=== PATIENT | female | born 1985 | race Caucasian/White ===

== ENCOUNTER → 2016-11-16 | Outpatient (CLI) | payer OTHER ==
[~2016-11-16] MED LIST: ACET325T96 PO; IBUP-103 PO; ONDA4TAB7 SL
== END | disposition home or self-care (01) ==
LOC: C.LAB 11:56
PROVIDERS: ATTEND Family Medicine
DX: J40 Bronchitis, not specified as acute or chronic (principal)

== ENCOUNTER → 2017-04-16 | Outpatient (CLI) | payer OTHER | END | disposition home or self-care (01) | LOC: C.PAPS 10:21 | PROVIDERS: ATTEND Obstetrics & Gynecology | DX: Z12.4 Encounter for screening for malignant neoplasm of cervix (principal) ==

== ENCOUNTER → 2018-02-18 | Outpatient (CLI) | payer OTHER ==
[~2018-02-18] MED LIST changes: +ACET-1693 PO; -ACET325T96 PO
== END | disposition home or self-care (01) ==
LOC: C.PATHSPEC 11:52
PROVIDERS: ATTEND Plastic Surgery
DX: D22.62 Melanocytic nevi of left upper limb, including shoulder (principal); D23.62 Other benign neoplasm of skin of left upper limb, including shoulder

== ENCOUNTER 2020-09-09 06:18 | Inpatient (IN) ==
[2020-09-09] MEDS ORDERED: MoRPHine SULFATE 10 MG/ML CARP/VIAL IV STA (06:20)
--- OUTSIDE RECORDS SUMMARY | 2020-09-09 06:20 | External Medical Summary | Continuity of Care Document ---
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 Refills: 0 Procedures Procedures not documented Immunizations Immunizations not documented Family History Father Family history of malignant neoplasm of urinary bladder (V16 .52) Status: Active (Z80.52) Family history of diabetes mellitus (V18.0) (Z83.3) Status: Active Grandmother Family history of malignant neoplasm of colon (V16.0) (Z80.0 ) Status: Active Grandfather Family history of cardiac disorder (V17.49) (Z82.49) Status: Active Social History - Smoking Status Never smoked tobacco Plan of Treatment Planned Observations Planned Goals not documented Results No Known Results Results not documented
--- OUTSIDE RECORDS SUMMARY | 2020-09-09 06:21 | External Medical Summary | Continuity of Care Document ---
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
[2020-09-09] MEDS ORDERED: ONDANSETRON INJ 2 MG/ML 2 ML VIAL IV STA ×2 (06:22→08:29)
[2020-09-09] MEDS ORDERED: HYDROmorphone INJ 1 MG/ML SYRINGE IV STA ×2 (06:36→10:21)
[2020-09-09] MEDS ORDERED: HYDROmorphone INJ 1 MG/ML SYRINGE ONE (06:37)
--- NOTE | 2020-09-09 06:47 | Emergency Department Note ---
ED Visit Note I have personally seen and evaluated the patient with the PA. I agree with the diagnosis and management decisions and have been personally involved in the case. X-rays were reviewed at the bedside, it appears that the patient has a comminuted and spiral midshaft to distal tib-fib fracture. Patient is neurovascularly intact distally. There does not appear to be any open skin. A sugar tong and posterior Ortho-Glass splint was applied under my direction. Patient did receive IV morphine and Zofran for her pain. IV fluids were initiated. The patient did have clear fluids this morning but states she did not eat any solid foods. Orthopedic surgery has been contacted. Please see Kristy Sarmiento PA-C's notes for further details of the history, physical and visit. .
--- NOTE | 2020-09-09 06:48 | Emergency Department Note ---
History of Present Illness General Chief complaint: Ankle Pain Stated complaint: FALL-R ANKLE Source: patient Mode of arrival: ambulatory Limitations: no limitations History of Present Illness Maximum Pain Intensity: 10 This patient is a 34-year-old female who presents to the emergency department for evaluation of a right leg injury. 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 She states that her foot went under her when she fell. She reports severe pain in the right lower leg. Pain rated 10/10. No numbness or weakness. Patient denies any other injuries with the fall. Denies previous injuries to this ankle/leg. Home Medications Medication Instructions Recorded Confirmed Type No Known Home Medications 09/09/20 09/09/20 History acetaminophen 1,000 mg PO Q8 30 Days #180 tab 09/09/20 Rx aspirin 81 mg PO BID 30 Days #60 tab 09/09/20 Rx ondansetron HCl [Zofran] 4 mg PO TID PRN #30 tab 09/09/20 Rx tramadol 50 - 100 mg PO Q6H PRN #40 tab 09/09/20 Rx Allergies Allergy/AdvReac Type Severity Reaction Status Date / Time No Known Allergies Allergy Mild Verified 09/09/20 06:28 Past Med/Surg History Medical History No significant past medical history Social History Smoking Status: Never smoker Hx Alcohol Use: Yes Alcohol type: beer and wine Hx Substance Use: No Preferred Language: Bolivian Communication Ability: Effective Imaging Technologist Required: No Beliefs That Will Affect Care: None marital status: Current Living Situation: Spouse and Family current occupational status: employed Feels Safe at Home: Yes Assistive Devices: Crutches and Glasses Review of Systems A total of 10 systems reviewed and were otherwise negative Physical Exam Vital Signs Vital Signs - 24 hr 09/09/20 06:43 Temperature 37.8 C H Temperature Source Oral Pulse Rate 106 H Pulse Rhythm Regular Respiratory Rate 20 Respiratory Effort / Characteristics Non-Labored Spontaneous Respiratory Depth Normal Respiratory Pattern Regular Blood Pressure 124/78 Blood Pressure Mean 93 Blood Pressure Position Sitting Pulse Oximetry 99 Oxygen Delivery Method Room Air Sepsis Recent Fever Within 48 Hours No Sepsis New/Unexplained Change in Mental Status No Sepsis Action Taken by Nursing No Action Required VITALS: Vitals are noted on the nurse's note and reviewed by myself. GENERAL: This is a 34-year-old female, anxious appearing, appears to be in pain, well-developed well-nourished. SKIN: There are no lacerations. Ecchymosis to the medial right lower leg. EARS: External auditory canals clear, tympanic membranes pearly dennis without erythema or effusion bilaterally. EYES: Pupils equal round and reactive to light and accommodation. MOUTH: Mucous membranes moist. Tonsils are not enlarged. Pharynx without erythema or exudate. NECK: Supple without nuchal rigidity. Cervical spine is nontender. HEART: Regular rate and rhythm without murmurs gallops or rubs. LUNGS: Clear to auscultation bilaterally without wheezes, rales or rhonchi. ABDOMEN: Positive bowel sounds x 4. Soft, nontender. MUSCULOSKELETAL: Obvious deformity to the right lower leg with tenderness over the area of deformity. No tenderness of the knee or femur. No tenderness of the foot. Dorsalis pedis pulse 2+. NEURO: Patient was alert and oriented to person place and time. Sensation intact distally over the right lower extremity. Course Course Splint placement: Splint: Ortho-Glass posterior and stirrup Indication: Right tibia and fibula fractures Ortho-Glass splint was applied by the ED automobile technician, myself and Dr. Rea. Neurovascular status reassessed by myself status post splint placement and was intact. Consultations Consultation #1: [facility] Consultation #2: I was informed that due to the patient's workman's compensation insurance, she was not able to see [facility], only [facility] or [facility]. The on-call orthopedist for both groups, Dr. Agee was called. Dr. Agee reviewed the patient studies and states he will send someone up to see her. Consultation #3: I was informed by Dr. Agee that he was not able to add the patient onto the OR schedule as she was already on Dr. Odell schedule. Apparently, the patient personally called Dr. Odell and reports that he is coming to see her. Administered Medications Discontinued Medications Acetaminophen (Acetaminophen 500 Mg Tab) 1,000 mg PO Q8 DENAE Stop: 10/09/20 21:59 Last Admin: 09/10/20 04:59 Dose: 1,000 mg Documented by: [id number] Admin: 09/09/20 22:06 Dose: 1,000 mg Documented by: [id number] Aspirin (Aspirin 81 Mg Ectab) 81 mg PO BID [facility] Stop: 10/09/20 20:59 Last Admin: 09/10/20 08:47 Dose: 81 mg Documented by: [id number] Admin: 09/09/20 20:16 Dose: 81 mg Documented by: [id number] Bacitracin (Bacitracin Inj 50,000 Unit Vial) Confirm Administered Dose 50,000 units .ROUTE .STK-MED ONE Stop: 09/09/20 11:07 Last Admin: 09/09/20 13:45 Dose: 50,000 units Documented by: [id number] Bupivacaine HCl (Bupivacaine 0.25% 30 Ml Vial) Confirm Administered Dose 30 ml .ROUTE .STK-MED ONE Stop: 09/09/20 11:18 Last Admin: 09/09/20 13:46 Dose: 30 ml Documented by: [id number] Bupivacaine HCl/Epinephrine Bitart (Bupivacaine/Epinephrine 0.5% Mpf 1:200,000 30 Ml Vial) Confirm Administered Dose 30 ml .ROUTE .STK-MED ONE Stop: 09/09/20 11:06 Last Admin: 09/09/20 13:45 Dose: Not Given Documented by: [id number] Docusate Sodium (Docusate Sodium 100 Mg Cap) 100 mg PO BID [facility] Stop: 10/09/20 20:59 Last Admin: 09/10/20 08:48 Dose: 100 mg Documented by: [id number] Admin: 09/09/20 20:16 Dose: 100 mg Documented by: [id number] Epinephrine HCl (Epinephrine Inj 1 Mg/Ml Amp) Confirm Administered Dose 1 mg .ROUTE .STK-MED ONE Stop: 09/09/20 11:18 Last Admin: 09/09/20 13:46 Dose: 0.15 mg Documented by: [id number] Hydromorphone HCl (Hydromorphone Inj 1 Mg/Ml Syringe) 1 mg IV NOW [facility] Stop: 09/09/20 06:37 Last Admin: 09/09/20 06:39 Dose: 0.5 mg Documented by: [id number] Hydromorphone HCl (Hydromorphone Inj 1 Mg/Ml Syringe) Confirm Administered Dose 1 mg .ROUTE .STK-MED ONE Stop: 09/09/20 06:38 Last Admin: 09/09/20 06:39 Dose: Not Given Documented by: [id number] Hydromorphone HCl (Hydromorphone Inj 0.5 Mg/0.5 Ml Syr) 0.5 mg IV NOW STA Stop: 09/09/20 08:30 Last Admin: 09/09/20 08:39 Dose: 0.5 mg Documented by: [id number] Hydromorphone HCl (Hydromorphone Inj 1 Mg/Ml Syringe) 1 mg IV NOW STA Stop: 09/09/20 10:22 Last Admin: 09/09/20 10:24 Dose: 1 mg Documented by: [id number] Cefazolin Sodium (Ancef 2000mg) 2,000 mg in 15 mls @ 3.75 mls/min IV PREOP DENAE Stop: 09/09/20 14:00 Last Admin: 09/09/20 11:45 Dose: 3.75 mls/min Documented by: [id number] Sodium Chloride (Nss 1000ml) 1,000 mls @ 100 mls/hr IV .Q10H DENAE Stop: 09/10/20 06:00 Last Infusion: 09/10/20 03:33 Dose: 0 mls/hr Documented by: [id number] Admin: 09/09/20 22:04 Dose: 100 mls/hr Documented by: [id number] Infusion: 09/09/20 22:04 Dose: 100 mls/hr Documented by: [id number] Admin: 09/09/20 16:10 Dose: 100 mls/hr Documented by: [id number] Cefazolin Sodium (Ancef 2000mg) 2,000 mg in 15 mls @ 3.75 mls/min IV Q8H DENAE; Protocol Stop: 09/10/20 04:03 Last Admin: 09/10/20 03:28 Dose: 3.75 mls/min Documented by: [id number] Admin: 09/09/20 20:16 Dose: 3.75 mls/min Documented by: [id number] Ketorolac Tromethamine (Ketorolac 30 Mg/Ml Vial) 30 mg IV Q6H DENAE Stop: 09/11/20 11:01 Last Admin: 09/10/20 10:48 Dose: 30 mg Documented by: [id number] Admin: 09/10/20 04:59 Dose: 30 mg Documented by: [id number] Admin: 09/09/20 22:06 Dose: 30 mg Documented by: [id number] Admin: 09/09/20 16:39 Dose: 30 mg Documented by: [id number] Miscellaneous (Check Scopolamine Patch Placement) 1 ea N/A QS [facility] Stop: 10/10/20 00:00 Last Admin: 09/10/20 08:48 Dose: 1 ea Documented by: [id number] Admin: 09/09/20 23:34 Dose: Not Given Documented by: [id number] Morphine Sulfate (Morphine Sulfate 10 Mg/Ml Carp/Vial) 6 mg IV NOW STA Stop: 09/09/20 06:21 Last Admin: 09/09/20 06:27 Dose: 6 mg Documented by: [id number] Multivitamins (Multivitamin Tab) 1 tab PO QAM [facility] Stop: 10/10/20 08:59 Last Admin: 09/10/20 08:48 Dose: 1 tab Documented by: [id number] Ondansetron HCl (Ondansetron Inj 2 Mg/Ml 2 Ml Vial) 4 mg IV NOW STA Stop: 09/09/20 06:23 Last Admin: 09/09/20 06:27 Dose: 4 mg Documented by: [id number] Ondansetron HCl (Ondansetron Inj 2 Mg/Ml 2 Ml Vial) 4 mg IV NOW STA Stop: 09/09/20 08:30 Last Admin: 09/09/20 08:39 Dose: 4 mg Documented by: [id number] Scopolamine (Scopolamine 1.5 Mg Tdsy) Confirm Administered Dose 1.5 mg TD .STK- MED [facility] Stop: 09/09/20 11:25 Last Admin: 09/09/20 17:02 Dose: Not Given Documented by: [id number] Sennosides (Senna 8.6 Mg Tab) 17.2 mg PO HS [facility] Stop: 10/09/20 20:59 Last Admin: 09/09/20 20:16 Dose: 17.2 mg Documented by: [id number] Tramadol HCl (Tramadol Hcl 50 Mg Tablet) 50 - 100 mg PO Q6H PRN PRN Reason: Pain & Pre PT Stop: 10/09/20 16:05 Last Admin: 09/10/20 09:29 Dose: 100 mg Documented by: [id number] Admin: 09/10/20 03:39 Dose: 50 mg Documented by: [id number] Admin: 09/09/20 19:58 Dose: 50 mg Documented by: [id number] Medical Decision Making Differential Diagnosis Fracture, subluxation, dislocation, contusion, ligamentous injury, neurovascular, compartment syndrome, rhabdomyolysis, as well as other pathologies. Home Medications Current Medication List: was personally reviewed by me Laboratory Data Lab Results 09/09/20 Range/Units Unknown SARS-CoV-2 Ag (Rapid) Negative (Negative) Imaging Data Attestation: I personally reviewed and interpreted this imaging study as follows: Radiologist's Impression: XR tibia fibula RT 2V, XR ankle RT min 3V routine HISTORY: 34 years-old Female right ankle injury acute right ankle and lower leg pain status post fall COMPARISON: None TECHNIQUE: 2 views of the right tibia and fibula with 3 views of the right ankle FINDINGS: TIBIA/FIBULA: There is an acute comminuted fracture involving the distal metadiaphyseal tibia with intra-articular extension into the lateral aspect of the tibial plafond and distal tibiofibular syndesmosis. There is 8 mm medial displacement with 7 degrees apex medial angulation a 6 mm posterior displacement. There is an acute comminuted fracture of the midshaft fibular which demonstrates 7 mm medial displacement and 6 mm posterior displacement with a few degrees of apex molar angulation. Moderate associated soft tissue swelling. ANKLE: Acute fractures as above. No definite pathologic widening of the distal tibiofibular syndesmosis. Talar dome is smooth. Ankle mortise is intact. IMPRESSION: 1. Acute comminuted fracture of the distal metadiaphyseal tibia with intra- articular extension into the lateral tibial plafond and distal tibiofibular syndesmosis with angulation and displacement as above. 2. Acute, comminuted, mildly angulated and displaced fracture of the mid diaphyseal fibula. RIGHT TIBIA/FIBULA CT CT DOSE: 362.78 mGy.cm HISTORY: Right lower leg and ankle pain. tib/fib fx - please include ankle TECHNIQUE: Multiaxial CT images of the right lower leg were performed and reformatted in the sagittal and coronal plane without the use of contrast. A dose lowering technique was utilized adhering to the principles of ALARA. COMPARISON: Right ankle and right lower leg 09/09/2020. FINDINGS: There is again noted a comminuted and displaced mid shaft fracture within the fibula. This demonstrates 9 mm of medial displacement and 1.9 cm of anterior displacement. The distal fibula appears intact. There is also a comminuted spiral fracture involving the distal metadiaphysis of the tibia. This extends to the articular surface which includes both the medial and posterior malleoli. The articular surface fractures are not significantly displaced. There is a tiny fracture along the anterolateral aspect of the distal tibia with a small distracted bony fragment. No dislocation at the ankle. The distal shaft fracture demonstrates up to 8 mm of medial and posterior displacement. No significant widening at the ankle mortise. Small lipohemarthrosis at the tibiotalar joint. Soft tissue edema surrounding the fracture sites. There is also a subcutaneous hematoma within the anterior distal lower leg. IMPRESSION: 1. Comminuted and displaced fractures involving the mid shaft of the fibula and distal tibia as described above. The tibial fracture extends to the articular surface. However, no significant widening of the ankle mortise. 2. Lipohemarthrosis at the tibiotalar joint. 3. Subcutaneous hematoma within the anterior distal lower leg. MDM Narrative This patient is a 34-year-old female who presents to the emergency department for evaluation of a right lower extremity injury. Patient with obvious deformity on exam. X-ray shows a comminuted fracture of the distal tibia as well as comminuted fracture of the mid fibula. Patient neurovascularly intact. Ortho-Glass splint was applied. Patient given IV pain medication. CT of the lower extremity was performed. Orthopedics was consulted to evaluate the patient for further care. Impression & Plan Comminuted fracture of shaft of tibia, Comminuted fracture of shaft of fibula Discharge Plan Visit Data Chief Complaint: Ankle Pain Stated Complaint: FALL-R ANKLE ED Provider: Sylvia Rea ED Midlevel Provider: Kristy Sarmiento Discharge Problem: Comminuted fracture of shaft of tibia, Comminuted fracture of shaft of fibula Patient Disposition: Still a Patient Discharge Instructions Interventions: ED Discharge Assessment Last Done: 09/09/20 10:56 Discharge Problem: Comminuted fracture of shaft of tibia Qualifiers: Encounter type: initial encounter Fracture type: closed Fracture alignment: displaced Laterality: right Qualified Code(s): S82.251A - Displaced comminuted fracture of shaft of right tibia, initial encounter for closed fracture Comminuted fracture of shaft of fibula Qualifiers: Encounter type: initial encounter Fracture type: closed Fracture alignment: displaced Laterality: right Qualified Code(s): S82.451A - Displaced comminuted fracture of shaft of right fibula, initial encounter for closed fracture
--- NOTE | 2020-09-09 06:58 | XRay Report ---
XR tibia fibula RT 2V, XR ankle RT min 3V routine HISTORY: 34 years-old Female right ankle injury acute right ankle and lower leg pain status post fal l COMPARISON: None TECHNIQUE: 2 views of the right tibia and fibula with 3 views of the right ankle FINDINGS: TIBIA/FIBULA: There is an acute comminuted fracture involving the distal metadiaphyseal tibia with intra-articular extension into the lateral aspect of the tibial plafond and distal tibiofibular syndesmosis. There is 8 mm medial displacement with 7 degrees apex medial angulation a 6 mm posterior displacement. There is an acute comminuted fracture of the midshaft fibular which demonstrates 7 mm medial displace ment and 6 mm posterior displacement with a few degrees of apex molar angulation. Moderate associated soft tissue swelling. ANKLE: Acute fractures as above. No definite pathologic widening of the distal tibiofibular syndesmosis. Derek ar dome is smooth. Ankle mortise is intact. IMPRESSION: 1. Acute comminuted fracture of the distal metadiaphyseal tibia with intra-articular extension into t he lateral tibial plafond and distal tibiofibular syndesmosis with angulation and displacement as abo ve. 2. Acute, comminuted, mildly angulated and displaced fracture of the mid diaphyseal fibula. ACT 112: Negative or not required by law. The above report was generated using voice recognition software. It may contain grammatical, syntax o r spelling errors. Electronically signed by: Ivan Kiser M.D. 09/09/2020 6:57 AM
--- NOTE | 2020-09-09 07:54 | CT Scan Report ---
RIGHT TIBIA/FIBULA CT CT DOSE: 362.78 mGy.cm HISTORY: Right lower leg and ankle pain. tib/fib fx - please include ankle TECHNIQUE: Multiaxial CT images of the right lower leg were performed and reformatted in the sagittal and coronal plane without the use of contrast. A dose lowering technique was utilized adhering to t he principles of ALARA. COMPARISON: Right ankle and right lower leg 09/09/2020. FINDINGS: There is again noted a comminuted and displaced mid shaft fracture within the fibula. This demonstrates 9 mm of medial displacement and 1.9 cm of anterior displacement. The distal fibula appea rs intact. There is also a comminuted spiral fracture involving the distal metadiaphysis of the tibia . This extends to the articular surface which includes both the medial and posterior malleoli. The ar ticular surface fractures are not significantly displaced. There is a tiny fracture along the anterol ateral aspect of the distal tibia with a small distracted bony fragment. No dislocation at the ankle. The distal shaft fracture demonstrates up to 8 mm of medial and posterior displacement. No significa nt widening at the ankle mortise. Small lipohemarthrosis at the tibiotalar joint. Soft tissue edema s urrounding the fracture sites. There is also a subcutaneous hematoma within the anterior distal lower leg. IMPRESSION: 1. Comminuted and displaced fractures involving the mid shaft of the fibula and distal tibia as descr ibed above. The tibial fracture extends to the articular surface. However, no significant widening of the ankle mortise. 2. Lipohemarthrosis at the tibiotalar joint. 3. Subcutaneous hematoma within the anterior distal lower leg. ACT 112: Negative or not required by law. Electronically signed by: Ivan Pedraza M.D. 09/09/2020 7:53 AM
[2020-09-09] MEDS ORDERED: HYDROmorphone INJ 0.5 MG/0.5 ML SYR IV STA (08:29)
[2020-09-09] MEDS ORDERED: ceFAZolin 2000MG 2,000 MG/15 ML SYR IV SCH (09:34)
--- NOTE | 2020-09-09 09:34 | Orthopedic Consultation ---
Date of Consultation September 09, 2020 Assessment & Plan (1) Comminuted fracture of shaft of tibia: X-rays reviewed by Dr. Odell today. I did discuss this and treatment options with Miranda today. We recommend open reduction internal fixation of her tibia fracture. We can do this today. Procedure was explained including the risks, benefits, and alternatives to surgery. Consent was obtained she would like to proceed with surgery as planned. She will likely need to be nonweightbearing after surgery for 6 weeks. 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 She fell and had immediate pain in the right lower extremity. She was brought into the emergency department where x-rays were obtained and she is found to have a distal tib-fib fracture. She reports no open areas of her skin but she did see a some discoloration of the skin. She denies any other injuries in the fall. She denies any pain in this leg prior to this fall. Allergies Allergy/AdvReac Type Severity Reaction Status Date / Time No Known Allergies Allergy Mild Verified 09/09/20 06:28 Home Medications Medication Instructions Recorded Confirmed Type No Known Home Medications 09/09/20 09/09/20 History Patient History Medical History No significant past medical history Social History Smoking Status: Never smoker current occupational status: employed Feels Safe at Home: Yes and No Review of Systems Review of Systems: All systems reviewed & are unremarkable except as noted in HPI & below Physical Exam Physical Exam: Well-developed well-nourished female in no distress. She is alert and oriented. She is supine in bed. On exam of the right lower extremity today, splint is already been applied did not see her skin around the tib-fib or fracture site. She has had no swelling or tenderness around her knee. She is able to move her toes with flexion extension. She has brisk refill of the right lower extremity. her sensation is intact to touch. Results & Data ([facility]) Vital Signs (Past 12 Hours) Vital Signs Temp Pulse Pulse Resp BP BP Pulse Ox 09/09/20 08:41 93 H 16 133/85 98 09/09/20 06:43 37.8 C H 106 H 20 124/78 99 Diagnostic Findings x-rays were reviewed of her tib-fib today which show a comminuted intra- articular distal tibia fracture. There is also a mid fibula fracture as well. PG Care Time/CCT Total # of Minutes Spent Total Time Spent with Patient: Total time spent is greater than 50% in coordination of care (as documented) at patient's floor/unit and/or counseling patient: Coding Level of Care Code 39456 Office/OBS Consult Lvl 4 Diagnoses Comminuted fracture of shaft of tibia S82.251A Encounter type: initial encounter Fracture alignment: displaced Fracture type: closed Laterality: right Comminuted fracture of shaft of fibula S82.451A Encounter type: initial encounter Fracture alignment: displaced Fracture type: closed Laterality: right (1) Comminuted fracture of shaft of tibia Encounter type: initial encounter Fracture alignment: displaced Fracture type: closed Laterality: right Qualified Code(s): S82.251A - Displaced comminuted fracture of shaft of right tibia, initial encounter for closed fracture (2) Comminuted fracture of shaft of fibula Encounter type: initial encounter Fracture alignment: displaced Fracture type: closed Laterality: right Qualified Code(s): S82.451A - Displaced comminuted fracture of shaft of right fibula, initial encounter for closed fracture
[2020-09-09] MEDS ORDERED: LIDOCAINE HCL 2% 2 ML VIAL/AMP(20MG/ML) INFIL ONE (10:12)
[2020-09-09] MEDS ORDERED: ROPIVACAINE 0.5% 5 MG/ML 30 ML VIAL ONE (10:12)
[2020-09-09] MEDS ORDERED: PROPOFOL IV EMULSION 10 MG/ML 20 ML VIAL IV ONE (10:12)
[2020-09-09] MEDS ORDERED: fentaNYL citrate 100 MCG/2 ML VIAL ONE (10:13)
[2020-09-09] MEDS ORDERED: MIDAZOLAM HCL 1 MG/ML 2ML VIAL ONE (10:13)
[2020-09-09] MEDS ORDERED: HYDROmorphone INJ 1 MG/ML SYRINGE IV PRN ×2 (10:15→11:27)
[2020-09-09] MEDS ORDERED: BUPIVACAINE/EPINEPHRINE 0.5% MPF 1:200,000 30 ML VIAL ONE (11:05)
[2020-09-09] MEDS ORDERED: BACITRACIN INJ 50,000 UNIT VIAL ONE (11:06)
[2020-09-09] MEDS ORDERED: EPINEPHrine INJ 1 MG/ML AMP ONE (11:17)
[2020-09-09] MEDS ORDERED: BUPIVACAINE 0.25% 30 ML VIAL ONE (11:17)
[2020-09-09] MEDS ORDERED: SCOPOLAMINE 1.5 MG TDSY TD ONE (11:24)
[2020-09-09] MEDS ORDERED: ePHEDrine sulfate 50 MG/ML AMP IV PRN (11:27)
[2020-09-09] MEDS ORDERED: ATROPINE SULFATE 0.1 MG/ML 10ML SYR IV PRN (11:27)
[2020-09-09] MEDS ORDERED: ONDANSETRON INJ 2 MG/ML 2 ML VIAL IV PRN ×2 (11:27→16:06)
[2020-09-09] MEDS ORDERED: fentaNYL citrate 100 MCG/2 ML VIAL IV PRN (11:27)
--- NOTE | 2020-09-09 11:27 | Anesthesiology Consultation ---
Date of Service September 09, 2020 Assessment & Plan (1) Encounter for pre-operative examination: Chart Review Chart Review: Acceptable Risk for Surgery Consults Requested none ASA ASA1 Proposed Anesthesia Anesthesia Type: General Regional Regional Laterality: Right Site: Popliteal Risk / Benefits Reviewed With: PT / POA / Parent / Guardian, Accepts Plan and Informed Consent Obtained History Surgery Operation Date: 09/09/20 11:10 Proposed Procedures p Right Ankle Bimalleolar Fracture Open Reduction Internal Fixation - Tate Odell MD Height/Weight Height: 5 ft 4 in Weight: 79.9 kg Allergies Allergy/AdvReac Type Severity Reaction Status Date / Time No Known Allergies Allergy Mild Verified 09/09/20 06:28 Medications Home Medications Medication Instructions Recorded Confirmed Last Taken No Known Home Medications 09/09/20 09/09/20 Unknown NPO Date Last Intake of Fluids: 09/09/20 Time Last Intake of Fluids: 05:30 Date Last Intake of Solids: 09/08/20 Time Last Intake of Solids: 19:00 Past Medical History Medical History No significant past medical history Exercise / Class Metabolic Activity II 4-5 Yardwork/Stairs/Walk up hill Past Anesthesia History No Hx of Anesthesia Complications and No Family Hx of Anesthesia Complications History of PONV No Hx of PONV and No Hx of Motion Sickness Social History Smoking Status: Never smoker Physical Exam Vital Signs Last Vital Signs Temp 97.9 F 09/09/20 11:03 Pulse 107 H 09/09/20 11:03 Resp 18 09/09/20 11:03 BP 131/84 09/09/20 11:03 Pulse Ox 97 09/09/20 11:03 ENMT Mouth: no dentition abnormality Thyromental Distance: > or= 3.5 Finger Breadths Mallampati Class: II Neck normal visual inspection Respiratory normal respiratory effort Auscultation: lungs clear to auscultation bilaterally Cardiovascular Rate/Rhythm: regular rate and regular rhythm Testing Laboratory Results 09/09/20 Unknown POC Ur Test NEG
[2020-09-09] MEDS ORDERED: DEXAMETHASONE SOD INJ 4 MG/ML VIAL ONE (12:26)
[2020-09-09] MEDS ORDERED: diphenhydrAMINE 50 MG/ML VIAL ONE (12:26)
[2020-09-09] MEDS ORDERED: NEOSTIGMINE METHYLSULFATE 5 MG/5 ML SYR ONE (12:27)
[2020-09-09] MEDS ORDERED: GLYCOPYRROLATE 0.2 MG/ML VIAL ONE (12:27)
[2020-09-09] MEDS ORDERED: ROCURONIUM BROMIDE 10 MG/ML 5 ML VIAL IV ONE (12:27)
[2020-09-09] MEDS ORDERED: HYDROmorphone INJ 2 MG/ML SYR/VIAL ONE (12:27)
[2020-09-09] MEDS ORDERED: KETOROLAC 30 MG/ML VIAL ONE (13:40)
[2020-09-09] MEDS ORDERED: ONDANSETRON INJ 2 MG/ML 2 ML VIAL ONE (13:41)
--- NOTE | 2020-09-09 13:55 | Fluoroscopy Report ---
FL ankle RT min 3V RTN HISTORY: 34 years-old Female RIGHT ANKLE ORIF acute fracture of the distal right tibia COMPARISON: CT right tibia and fibula study of same day TECHNIQUE: 4 spot fluoroscopic images of the right tibia and fibula were obtained utilizing 27.7 seco nds fluoroscopy time FINDINGS: Status post lateral plate and screw fusion fixating the acute, comminuted intra-articular fracture of the mid to distal tibia now with near-anatomic alignment. There is moderately improved alignment of the acute comminuted mid diaphyseal fibular fracture without hardware. Expected postsurgical soft tis gallo swelling and deep tissue air. No retained foreign body. IMPRESSION: Fluoroscopic assistance as above. Please see operative report for further details. ACT 112: Negative or not required by law. The above report was generated using voice recognition software. It may contain grammatical, syntax o r spelling errors. Electronically signed by: Ivan Kiser M.D. 09/09/2020 1:53 PM
--- NOTE | 2020-09-09 14:09 | Post Operative Brief Note ---
PG Immediate Post Op with CF Date of Surgery September 09, 2020 Pre & Post Diagnosis Operation Date: 09/09/20 11:10 Pre-Op Diagnosis: Right Comminuted Intra-Articular Distal Tibia Fracture Post-Op Diagnosis: Right Comminuted Intra-Articular Distal Tibia Fracture I identified the patient and participated in the time-out.: Yes Procedure Operation Date: 09/09/20 11:10 Actual Procedures p Open Reduction Internal Fixation Right Tibia Fracture(Right) - Tate Odell MD Surgeon Tate Odell MD Insurance Sales Professional Nixon, CAROLINE Estimated Blood Loss 20 Findings Consistent with Post-Op Diagnosis Fluids 1300 cc Specimens Specimen Description: none per surgeon Anesthesia Type General Regional Complications none Disposition Accompanied Patient To Recovery: No Disposition: Recovery Room
--- NOTE | 2020-09-09 14:37 | Anesthesiology Progress Note ---
Date of Service September 09, 2020 Anesthesia Post Procedure Vital Signs Vital Signs: Temp Pulse Pulse Resp BP BP Pulse Ox 09/09/20 11:03 97.9 F 107 H 18 131/84 97 09/09/20 10:56 93 H 16 118/67 98 09/09/20 08:41 93 H 16 133/85 98 09/09/20 06:43 100.0 F H 106 H 20 124/78 99 Pain Intensity Right Ankle: Pain Intensity: 6 Transfer of Care Handoff Completed per policy Notes Mental Status: alert / awake / arousable and participated in evaluation Patient Amnestic to Procedure: Yes Nausea / Vomiting: adequately controlled Pain: adequately controlled Airway Patency, RR, SpO2: stable & adequate BP & HR: stable & adequate Hydration State: stable & adequate Anesthetic Complications: no major complications apparent and Pt Satisfied with anesthetic care
[2020-09-09] MEDS ORDERED: MAGNESIUM HYDROXIDE SUSP 30 ML UDC PO PRN (16:06)
[2020-09-09] MEDS ORDERED: HYDROmorphone INJ 0.5 MG/0.5 ML SYR IV PRN (16:06)
[2020-09-09] MEDS ORDERED: ALUMINUM/MAGNESIUM SUSP 30 ML UDC PO PRN (16:06)
[2020-09-09] MEDS ORDERED: diphenhydrAMINE Capsule 25 MG CAP PO PRN (16:06)
[2020-09-09] MEDS ORDERED: bisacodyL 10 MG SUPP PR PRN (16:06)
[2020-09-09] MEDS ORDERED: METOCLOPRAMIDE HCL INJ 5 MG/ML 2 ML VIAL IV PRN (16:06)
[2020-09-09] MEDS ORDERED: NALOXONE HCL 0.4 MG/1 ML VIAL/CARP IV PRN (16:06)
[2020-09-09] MEDS: SODIUM CHLORIDE 0.9% 1000ML 1,000 ML IV SCH ×2 (16:10→22:04)
[2020-09-09] MEDS: KETOROLAC 30 MG/ML VIAL IV SCH ×2 (16:39→22:06)
--- NOTE | 2020-09-09 16:54 | Operative Report ---
Post Operative Report Pre & Post Diagnosis Operation Date: 09/09/20 11:10 Pre-Op Diagnosis: Right Comminuted Intra-Articular Distal Tibia Fracture With proximal fibula fracture Post-Op Diagnosis: Right Comminuted Intra-Articular Distal Tibia Fracture With proximal fibula fracture I identified the patient and participated in the time-out.: Yes Procedure Operation Date: 09/09/20 11:10 Actual Procedures p Open Reduction Internal Fixation Right Tibia Fracture(Right) - Tate Odell MD Surgeon Tate Odell MD Exhibit Carpenter Nixon, CAROLINE Estimated Blood Loss 20 Findings Consistent with Post-Op Diagnosis Fluids 1300 cc. 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 She had acute onset of pain and deformity to her leg. She was taken emergency room x-rays revealed a severely comminuted intra-articular distal tibia fracture and fibula fracture. Patient indicated for surgical treatment. Description of Procedure Operative implants consist of: 1. Synthes right anterior lateral 3.5 mm 15 hole distal tibial locking plate. 2. 3.5 mm locking screws x7. 3. 3.5 mm cortical screws x5. 4. 4.0Partially-threaded cancellous screws x4 1 with a washer. Patient was taken to the operating identified and placed on the operating table supine position. All contact areas were properly padded. IV antibiotics were provided by the anesthesia team. A right thigh tourniquet was then placed.The splint was removed from the right leg.The right lower extremity was then scrubbed with Hibiclens and then prepped with ChloraPrep and draped in usual sterile fashion. The right leg was elevated exsanguinated with use of an Esmarch and turns placed at 300 mmHg. An anterior lateral approach to the tibia was then performed to longitudinal incision about a centimeter lateral to the anterior crest of the tibia. This is extended distally just medial to the tibialis anterior tendon. Sharp dissection was got through subcutaneous tissue down below the fascia. The fascia was incised longitudinally about a centimeter off the anterior crest of the tibia. The anterior muscle compartment was then cleaned off the lateral aspect of the tibia. The fracture was easily visualized. There was some muscle tract within the fracture site. I distracted the fracture remove the muscle and the fascia. I did have to release the anterior muscular compartment from the anterior medial aspect of the tibia. I made an incision the retinaculum and retracted the tendons laterally. Great care was taken not to get into the ankle joint. The fracture was then anatomically reduced and held with some reduction clamps. I placed a single 3.5 cortical lag screw from the proximal lip medial segment of the proximal fragment to the lateral segment posteriorly. I then placed a 4.0 partially-threaded cancellous lag screw from medial to the lateral through the 2 distal segments. This was placed with a washer. Despite excellent approximation of the fracture. Was anatomically reduced and held. I then placed a 15 hole anterior lateral right Synthes distal tibial locking plate on the anterolateral face of the tibia. Position was verified fluoroscopically. I fixed it distally with 3 of 4.0 partially-threaded cancellous lag screws to lag the articular surface fragments and a single 3.5 cortical locking screw. I fixed this proximally with a two3.5 cortical screws to snug the plate to the bone and then for additional 3.5 locking screws. I then placed 2 additional 3.5 locking screws distally in the distal segment and then placed two 3.5 cortical lag screws through the plate to align the segments together nor the near the mid segment. X-ray was brought in. The fracture is anatomically aligned. All hardware is appropriate position. I elected not to use the most proximal hole in the plate as I did not think I need that it extension and I would have had to extend the incision. Some final x-rays were obtained. I irrigated the wound extensively. I injected locally with 30 cc of half percent Marcaine with epinephrine. The tourniquet was let down for turn time 69 minutes. Hemostasis assured use electrocautery. I did reapproximate the extensor retinaculum over the ankle with 0 Vicryl suture in [id number] fashion. I did reapproximate the fascia the anterior compartment with some 0 Vicryl suture but did not close it completely left about 2 cm gap for the muscle swelling. The subcutaneous tissues were then closed with 2-0 Dexon suture in a buried interrupted fashion skin was closed with 3-0 nylon suture in a simple fashion. Leg was then cleaned and dried and the sterile bandage composed of Xeroform, 4 x 4's, ABD pad, sterile cast padding, and a well-padded posterior and stirrup splint were applied. The patient then brought out of general incision transferred to the recovery room in stable condition. Patient tolerated procedure well and there were no complications. [place] Alicea, my physician university administrative assistant, was present for the entire procedure. His assistance was essential and required for appropriate patient positioning, prepping and draping, surgical exposure, performing the technical details of the operation, placement the implants, closure of the wound, and placement of the sterile bandage. I attest to the content of the Intraoperative Record and any orders documented therein. Any exceptions are noted below.
--- NOTE | 2020-09-09 17:53 | Progress Notes ---
DATE: 09/09/2020 SUBJECTIVE: A 34-year-old female postop from ORIF of a right intra-articular distal tib-fib fracture. She is doing pretty well. Pretty minimal pain currently. Block seems to still be in effect. No chest pain or shortness of breath. OBJECTIVE: VITAL SIGNS: Temperature 36.5. Vital signs stable. GENERAL: Reveals a pleasant, middle-aged female. She is lying in bed with her foot propped up and looks pretty comfortable. LUNGS: Clear to auscultation. HEART: Regular rate and rhythm. ABDOMEN: Soft, nontender, nondistended. EXTREMITIES: Grossly neurovascularly intact except as follows: Examination of the right leg reveals the dressing to be clean, dry and intact. Her toes are pink with brisk refill. She has no significant sensory or motor function yet. ASSESSMENT: A 34-year-old female postoperative from a right intra-articular distal tibiofibular open reduction-internal fixation, doing well. Her pain is controlled. Block is still in effect. PLAN: 1. DVT prophylaxis including thigh-high TEDs, SCDs, and aspirin twice a day. 2. PT/OT. She is going to be strictly nonweightbearing for the next 6 weeks. 3. Pain control, doing well with current pain regimen. 4. Disposition: Plan to discharge to home likely after therapy tomorrow.
[2020-09-09] MEDS: traMADol HCL 50 MG TABLET PO PRN (19:58)
[2020-09-09] MEDS: ceFAZolin 2000MG 2,000 MG/15 ML SYR IV SCH (20:16)
[2020-09-09] MEDS: ASPIRIN 81 MG ECTAB PO SCH (20:16)
[2020-09-09] MEDS: DOCUSATE SODIUM 100 MG CAP PO SCH (20:16)
[2020-09-09] MEDS ORDERED: SENNA 8.6 MG TAB PO SCH (21:00)
[2020-09-09] MEDS: ACETAMINOPHEN 500 MG TAB PO SCH (22:06)
[2020-09-09] MEDS: CHECK SCOPOLAMINE PATCH PLACEMENT SCH (23:34)
[2020-09-10] MEDS: ceFAZolin 2000MG 2,000 MG/15 ML SYR IV SCH (03:28)
[2020-09-10] MEDS: traMADol HCL 50 MG TABLET PO PRN ×2 (03:39→09:29)
[2020-09-10] MEDS: ACETAMINOPHEN 500 MG TAB PO SCH (04:59)
[2020-09-10] MEDS: KETOROLAC 30 MG/ML VIAL IV SCH ×2 (04:59→10:48)
[2020-09-10] MEDS: ASPIRIN 81 MG ECTAB PO SCH (08:47)
[2020-09-10] MEDS: CHECK SCOPOLAMINE PATCH PLACEMENT SCH (08:48)
[2020-09-10] MEDS: DOCUSATE SODIUM 100 MG CAP PO SCH (08:48)
--- NOTE | 2020-09-10 08:59 | Anesthesiology Progress Note ---
Date of Service September 10, 2020 Anesthesia Post Procedure Vital Signs Vital Signs: Temp Pulse Pulse Pulse Resp BP BP 09/10/20 07:15 36.5 C 83 16 105/69 09/10/20 03:09 36.6 C 83 16 99/62 L 09/09/20 23:09 36.5 C 84 18 103/65 09/09/20 19:04 36.9 C 106 H 17 117/76 09/09/20 18:09 36.5 C 84 16 109/74 09/09/20 16:59 36.5 C 88 16 110/68 09/09/20 16:35 36.6 C 98 H 16 102/68 09/09/20 16:05 36.6 C 90 16 108/68 09/09/20 15:50 96 H 16 106/60 09/09/20 15:40 83 14 105/66 09/09/20 15:30 36.3 C L 83 14 112/65 09/09/20 15:20 104 H 18 111/77 09/09/20 15:10 92 H 16 116/71 09/09/20 15:00 98 H 18 114/63 09/09/20 14:50 96 H 16 115/68 09/09/20 14:40 98 H 14 118/79 09/09/20 14:30 88 16 119/67 09/09/20 14:20 90 12 112/61 09/09/20 14:14 36.5 C 92 H 14 108/65 09/09/20 11:03 36.6 C 107 H 18 131/84 09/09/20 10:56 93 H 16 118/67 Pulse Ox 09/10/20 07:15 98 09/10/20 03:09 98 09/09/20 23:09 96 09/09/20 19:04 100 09/09/20 18:09 100 09/09/20 16:59 96 09/09/20 16:35 97 09/09/20 16:05 96 09/09/20 15:50 96 09/09/20 15:40 96 09/09/20 15:30 95 09/09/20 15:20 99 09/09/20 15:10 96 09/09/20 15:00 96 09/09/20 14:50 98 09/09/20 14:40 98 09/09/20 14:30 96 09/09/20 14:20 100 09/09/20 14:14 100 09/09/20 11:03 97 09/09/20 10:56 98 Pain Intensity Right Ankle: Pain Intensity: 0 Transfer of Care Handoff Completed per policy Notes Mental Status: alert / awake / arousable Patient Amnestic to Procedure: Yes Nausea / Vomiting: adequately controlled Pain: adequately controlled Airway Patency, RR, SpO2: stable & adequate BP & HR: stable & adequate Hydration State: stable & adequate Neuraxial Anesthesia: was administered Anesthetic Complications: no major complications apparent Notes: Patient awake and alert. No problems noted. Miranda states she still has no feeling in her toes, and cannot move them yet. She did have a popliteal block. Will continue to monitor. Dr. Macdonald aware, and Dr. Randolph to check on her.
[2020-09-10] MEDS ORDERED: MULTIVITAMIN TAB PO SCH (09:00)
--- NOTE | 2020-09-10 10:50 | Progress Notes ---
DATE: 09/10/2020 SUBJECTIVE: A 34-year-old female postop day 1 from ORIF of right intra-articular distal tib-fib fracture. She is doing pretty well. Having a little bit of knee pain. Not really much leg pain. Still does not have quite the sensation and function in her right leg yet. No other complaints. OBJECTIVE: VITAL SIGNS: Temperature 36.5. Vital signs stable. GENERAL: Shows a pleasant, middle-aged female. She is sitting up in bed and looks quite comfortable. EXTREMITIES: Examination of the right leg reveals the splint to be clean, dry and in place. Her toes are pink with brisk refill. She can just slightly flex and extend her toes. Sensation still fairly numb. ASSESSMENT: A 34-year-old female postoperative day 1 from open reduction and internal fixation of right intra-articular distal tibiofibular fracture, doing pretty well. I do believe that the block is still in effect to some degree affecting her pain and motor function. She has no significant pain with toe motion and no signs of compartment issues. PLAN: 1. DVT prophylaxis including thigh-high TEDs, SCDs, and aspirin twice a day. 2. PT/OT. She is strictly nonweightbearing in the right leg for the next 6 weeks. 3. Pain control, doing well with current pain regimen. 4. Disposition: Plan to discharge to home later today if she is getting around okay in therapy.
--- NOTE | 2020-09-14 09:37 | Discharge Summary ---
Date of Service September 14, 2020 Admission HPI Per Admitting Provider Documented in the H & P Admission Exam (Per Admitting) Constitutional Documented in the H & P Discharge Data Consultations 09/09/20 16:06 Consult Case Management - Discharge Planning Routine 09/10/20 11:19 Burn CD for patient Routine Procedures Performed Operation Date: 09/09/20 11:10 Actual Procedures p Open Reduction Internal Fixation Right Tibia Fracture(Right) - Tate Odell MD Hospital Course (1) Comminuted fracture of shaft of tibia: This patient is a 34 year old female admitted on 09/09/20 with a comminuted distal tib/fib fracture. The same day, she underwent open reduction internal fixation of the tibia fracture. She tolerated the procedure well and there were no complications. Transferred to the PACU post op and later to the orthopedic floor for further care. She was given ancef for antibiotic prophylaxis. She was also given CYNDY stockings, SCDs, and aspirin for DVT prophylaxis. Vital signs were monitored during her hospital stay and remained stable. Did not require any blood transfusions. There were no complications during her hospital stay. By post op day #1 the patient was tolerating a regular diet, pain was reasonably controlled with oral pain medicine, and she was participating in physical therapy. On post op day #1 the patient was discharged home. She was given printed discharge instructions including prescriptions for extra strength tylenol, aspirin, zofran, and tramadol. She is nonweight bearing to the right lower extremity for 6 weeks. Keep dressing clean, dry, intact. Follow up approximately 2 weeks post op or sooner if there are problems or concerns. (2) Comminuted fracture of shaft of fibula: Coding Level of Care Code None Diagnoses Comminuted fracture of shaft of tibia S82.251A Encounter type: initial encounter Fracture alignment: displaced Fracture type: closed Laterality: right Comminuted fracture of shaft of fibula S82.451A Encounter type: initial encounter Fracture alignment: displaced Fracture type: closed Laterality: right
== END 2020-09-10 11:44 | disposition home or self-care (01) | DRG 494 ==
LOC: ED 06:18 → ASU 10:56 → 3E 14:14

== ENCOUNTER 2022-01-27 11:31 | Observation (INO) ==
--- NOTE | 2022-01-26 08:36 | Anesthesiology Consultation ---
Date of Service January 26, 2022 Assessment & Plan (1) Encounter for pre-operative examination: - COVID screening: Per assessment on 01/26: No known COVID-19 positive contacts or current COVID-19 related symptoms. Travel screen- returned from travel to [facility] 01/25 via plane (was injured while on vacation)- Pt is vaccinated. Preop Cov[place] test done 01/25 ([place]) was negative. - Check test AM DOS Chart Review Chart Review: Acceptable Risk for Surgery and Patient NOT seen in Pre Admission Testing History Surgery Operation Date: 01/27/22 13:50 Proposed Procedures p Placement Right Tibial Intramedullary Nail - Benton Tadeo DO s Removal External Fixator Right Tibia - Benton Tadeo DO Height/Weight Height: 5 ft 4 in Weight: 72.575 kg Allergies Allergy/AdvReac Type Severity Reaction Status Date / Time No Known Allergies Allergy Mild Verified 01/26/22 07:59 Medications Home Medications Medication Instructions Recorded Confirmed Last Taken Lactobacillus acidophilus 10 10,000 mmu cells PO HS 01/26/22 01/26/22 Unknown billion cell capsule (Probiotic) oxycodone 5 mg tablet 5 mg PO Q4H PRN 01/26/22 01/26/22 Unknown Past Medical History Medical History TMJ click NO LOCKING Past Family History Family History Father Family history of diabetes mellitus Other No family history of adverse response to anesthesia Past Surgical History Surgical History History of open reduction and internal fixation (ORIF) procedure Right Tibia Fracture History of surgery on lower extremity Right Tibia Hardware Removal(Right) History of wisdom tooth extraction Social History Smoking Status: Never smoker Hx Alcohol Use: Yes Alcohol type: beer and wine alcohol intake frequency: a few times a month substance use type: does not use
[~2022-01-27 11:31] MED LIST changes: -ACET-1693 PO; +ACETAMINOPHEN 500 MG TAB PO SCH; -IBUP-103 PO; +LR 15ML/HR IV SCH; +LR 60ML/HR IV SCH; -ONDA4TAB7 SL; +ROPIVACAINE 0.5% 5 MG/ML 30 ML VIAL ONE; +ceFAZolin 2000MG 2,000 MG/15 ML SYR IV SCH
[2022-01-27] MEDS ORDERED: fentaNYL citrate 100 MCG/2 ML VIAL ONE ×2 (12:05→15:03)
[2022-01-27] MEDS ORDERED: DEXAMETHASONE SOD INJ 4 MG/ML VIAL ONE (12:05)
[2022-01-27] MEDS ORDERED: LIDOCAINE 2% 2 ML VIAL/AMP(20MG/ML) INFIL ONE (12:05)
[2022-01-27] MEDS ORDERED: PROPOFOL IV EMULSION 10 MG/ML 20 ML VIAL IV ONE (12:05)
[2022-01-27] MEDS ORDERED: MIDAZOLAM HCL 1 MG/ML 2ML VIAL ONE ×2 (12:05→13:01)
[2022-01-27] MEDS ORDERED: ONDANSETRON INJ 2 MG/ML 2 ML VIAL ONE ×2 (12:05→14:53)
--- NOTE | 2022-01-27 12:32 | History & Physical Bridge Note ---
Date of Service January 27, 2022 History & Physical Bridge Note I have examined the patient, reviewed the History & Physical and in the interval since the performance of the History & Physical I have noted the following changes of clinical significance: no changes noted
[2022-01-27] MEDS ORDERED: SODIUM CHLORIDE 0.9% INJ 10 ML VIAL ONE (12:45)
[2022-01-27] MEDS ORDERED: ONDANSETRON INJ 2 MG/ML 2 ML VIAL IV PRN ×2 (12:53→18:12)
[2022-01-27] MEDS ORDERED: KETOROLAC 30 MG/ML VIAL IV PRN (12:53)
[2022-01-27] MEDS ORDERED: PROMETHAZINE HCL 12.5 MG in SODIUM CHLORIDE 0.9% 50 ML IV PRN (12:53)
[2022-01-27] MEDS ORDERED: ATROPINE SULFATE 0.1 MG/ML 10ML SYR IV PRN (12:53)
[2022-01-27] MEDS ORDERED: SCOPOLAMINE 1 MG TDSY TD ONE ×2 (12:54→12:56)
[2022-01-27] MEDS ORDERED: diphenhydrAMINE 50 MG/ML VIAL ONE (13:44)
[2022-01-27] MEDS ORDERED: PHENYLEPHRINE 100MCG/ML 5ML SYR ONE (14:53)
[2022-01-27] MEDS ORDERED: CHECK SCOPOLAMINE PATCH PLACEMENT SCH (16:00)
--- NOTE | 2022-01-27 16:36 | Operative Report ---
PG Post Operative Report Pre & Post Diagnosis Operation Date: 01/27/22 13:50 Pre-Op Diagnosis: Comminuted fracture of shaft of fibula, Comminuted fracture of shaft of tibia Post-Op Diagnosis: Comminuted fracture of shaft of fibula, Comminuted fracture of shaft of tibia I identified the patient and participated in the time-out.: Yes Procedure Operation Date: 01/27/22 13:50 Actual Procedures p Placement of Right Tibial Intramedullary Nail(Right) - Benton Tadeo DO s Removal of Right Tibial External Fixator(Right) - Benton Tadeo DO Surgeon Benton Tadeo DO Pace Analyst Benton Patino PAC Estimated Blood Loss 10 Findings Consistent with Post-Op Diagnosis Specimens None Complications none Disposition Disposition: Recovery Room Indications Miranda is a pleasant 36-year-old female who fractured her right tibia about a year ago. She underwent plate fixation. She then had a plate removed about 3 months ago. She was then skim boarding and she reinjured her right tibia. She had an external fixator placed on it in [place]. She now presents for definit tyshwan fixation of the right tibial shaft. Description of Procedure I used a Synthes titanium tibial nail. 4 of the screws were a star drive and a single screw was a hex head. The hex head screw was the more distal of the 2 proximal screws. On January 27, 2022 Miranda arrived at [facility] for above procedure. She was seen in the preoperative holding area and the operative extremity was identified and signed. She was given a preoperative antibiotic and a regional block. She was taken back the operating room and laid on the table in supine position. She was put under general anesthesia. The external fixator was then removed. The right leg was prepped and draped in sterile fashion. The timeout was done and the patient and the operative extremity was properly identified. The fracture was reduced first. I was unable to do a an acceptable closed reduction. A medial sided incision was made at the fracture site. Dissection was taken down directly to the fracture. The fracture was then reduced with a reduction clamp. I was able to get anatomic alignment. A medial parapatellar incision was then made at the knee. Dissection was taken down through the fascia. A medial parapatellar incision was made. The patella tendon was retracted laterally and the proximal tibia was exposed. A single 3.2 mm guidepin was placed down the tibial shaft. Appropriate placement was checked on orthogonal fluoroscopic images. A 12 mm opening reamer was then passed. A ball-tipped guidewire was then advanced down to the ankle. Nail was then measured to be 300 mm. Sequential reaming up to a 10.5 reamer was done. A 9 mm Synthes tibial nail was then impacted into place. I was happy with the overall reduction of the fracture and the alignment of the tibial nail. 3 distal locking screws were placed with the help of orthogonal fluoroscopic images. 2 proximal locking screws were placed with the use of the proximal outrigger. Final fluoroscopic images showed a good length of all the screws and anatomic alignment of the fracture. A 10 mm Was placed on the top of the nail. The wounds were then irrigated. The wounds were then closed with 2-0 Vicryl and 3-0 Prolene suture. Steri-Strips were placed. She was then placed in a posterior splint. She was then extubated and transferred to a [facility]. She was taken to the postanesthesia care unit in stable condition. She tolerated the procedure well. Benton Patino PA-C, was present for the entire procedure. He was critical for patient positioning, prepping, draping, retraction exposure, wound closure and application of sterile dressing. I attest to the content of the Intraoperative Record and any orders documented therein. Any exceptions are noted below.
[2022-01-27] MEDS: HYDROmorphone INJ 1 MG/ML SYRINGE IV PRN ×3 (17:11→17:40)
--- NOTE | 2022-01-27 17:22 | Fluoroscopy Report ---
FL tibia/fibula RT 2V CLINICAL HISTORY: RIGHT TIBIAL INTRAMEDULLARY NAIL COMPARISON STUDY: None. FLUOROSCOPY TIME: 4 minutes and 35 seconds. FINDINGS: 6 fluoroscopic spot images of the right lower leg were submitted for review. There is an in tramedullary natalia within the tibia with proximal and distal interlocking screws traversing the tibial fracture. The hardware appears intact. Alignment is near-anatomic. There is a mildly displaced commin uted fracture within the mid shaft of the fibula. IMPRESSION: Fluoroscopic assistance provided for internal fixation of a right tibial/fibular fracture . ACT 112: Negative or not required by law. Electronically signed by: Ivan Pedraza M.D. 01/27/2022 5:21 PM
--- NOTE | 2022-01-27 17:48 | XRay Report ---
XR tibia fibula RT 2V CLINICAL HISTORY: post op COMPARISON: Right tibia and fibula radiographs January 25, 2022. FINDINGS: These radiographs demonstrate internal fixation of the mid to distal right tibial diaphyse al fracture with intramedullary natalia with proximal distal screws. Fracture alignment appears anatomic. Hardware is intact. No unexpected radiopaque foreign bodies. Alignment of the fibular fracture has i mproved. Talar dome is intact IMPRESSION: Expected findings following internal fixation of the right tibial fracture with intramedu llary natalia and proximal and distal screws. ACT 112: Negative or not required by law. Electronically signed by: Isaías León M.D. 01/27/2022 5:46 PM
--- NOTE | 2022-01-27 18:03 | Anesthesiology Progress Note ---
Date of Service January 27, 2022 Anesthesia Post Procedure Vital Signs Vital Signs: Temp Pulse Pulse Resp BP BP Pulse Ox 01/27/22 17:49 36.8 C 106 H 15 106/68 98 01/27/22 17:35 103 H 15 108/71 98 01/27/22 17:25 103 H 19 108/67 99 01/27/22 17:15 108 H 17 102/69 100 01/27/22 17:09 37.1 C 109 H 14 115/54 L 100 01/27/22 12:08 36.7 C 107 H 18 106/71 99 Pain Intensity Right Lower Leg: Pain Intensity: 3 Transfer of Care Handoff Completed per policy Notes Mental Status: alert / awake / arousable Patient Amnestic to Procedure: Yes Nausea / Vomiting: adequately controlled Pain: adequately controlled Airway Patency, RR, SpO2: stable & adequate BP & HR: stable & adequate Hydration State: stable & adequate Anesthetic Complications: no major complications apparent
[2022-01-27] MEDS ORDERED: HYDROmorphone INJ 0.5 MG/0.5 ML SYR IV PRN ×2 (18:12)
[2022-01-27] MEDS ORDERED: oxyCODONE/ACETAMINOPHEN 5mg/325mg TAB PO PRN ×2 (18:12)
[2022-01-27] MEDS: ASPIRIN 81 MG ECTAB PO SCH (20:02)
[2022-01-27] MEDS: KETOROLAC 30 MG/ML VIAL IV PRN (22:42)
[2022-01-28] MEDS ORDERED: ceFAZolin 2000MG 2,000 MG/15 ML SYR IV SCH (06:00)
[2022-01-28] MEDS ORDERED: ceFAZolin 2000MG 2,000 MG/15 ML SYR IV STA (07:07)
[2022-01-28] MEDS: ASPIRIN 81 MG ECTAB PO SCH (07:39)
[2022-01-28] MEDS: KETOROLAC 30 MG/ML VIAL IV PRN (07:41)
--- NOTE | 2022-01-28 07:43 | Orthopedic Progress Note ---
Date of Service January 28, 2022 Assessment & Plan (1) Comminuted fracture of shaft of tibia: Overall she is doing fairly well. She is having too much pain at this time. She will receive a postoperative dose of 2 g of Ancef. She is on aspirin 81 mg twice a day for DVT prophylaxis. She can be mostly weightbearing as tolerated on the right leg but she understands she should keep it elevated is much as possible throughout the weekend. She will be given some Percocet, Toradol, and Flexeril for pain management. She can be discharged home this morning. She is to follow-up with orthopedics on Sunday to change her splint. Charanjit Pineda was seen and examined at bedside this morning. Overall she is doing fairly well. She is having too much pain in the right leg. She has some drainage through her dressing last night. She has been keeping her right leg elevated. She has no complaints. Review of Systems All systems reviewed & are unremarkable except as noted in HPI & below. Physical Exam On physical examination of the right leg, there is been some bloody drainage through the dressing. I removed the Heladio wrap and placed some ABDs and placed a new Heladio wrap. She does not have much feeling in her toes yet because of the nerve block. She does not have much pain. She is keeping her right leg elevated. Results & Data Results & Data Laboratory Results . Diagnostic Findings Postoperative x-rays of the right tibia show the nail to be in good alignment. The fracture is in anatomic alignment. PG Care Time/CCT Total # of Minutes Spent Total Time Spent with Patient: Total time spent is greater than 50% in coordination of care (as documented) at patient's floor/unit and/or counseling patient: Coding Level of Care Code 46947 Post Operative Follow-Up Diagnoses Comminuted fracture of shaft of tibia S82.251A Encounter type: initial encounter Fracture alignment: displaced Fracture type: closed Laterality: right (1) Comminuted fracture of shaft of tibia Encounter type: initial encounter Fracture alignment: displaced Fracture type: closed Laterality: right Qualified Code(s): S82.251A - Displaced comminuted fracture of shaft of right tibia, initial encounter for closed fracture
--- NOTE | 2022-01-28 07:48 | Discharge Summary ---
Date of Service January 28, 2022 Principal Diagnosis Same as "Discharge Diagnosis" noted below under Discharge Instructions. Discharge Exam On physical examination of the right leg, there is been some bloody drainage through the dressing. I removed the Heladio wrap and placed some ABDs and placed a new Heladio wrap. She does not have much feeling in her toes yet because of the nerve block. She does not have much pain. She is keeping her right leg elevated. Discharge Data Procedures Performed Operation Date: 01/27/22 13:50 Actual Procedures p Placement of Right Tibial Intramedullary Nail(Right) - Benton Tadeo DO s Removal of Right Tibial External Fixator(Right) - Benton Tadeo DO Ordered Studies 01/27/22 05:00 US - OR guided needle placemen Routine 01/27/22 13:50 FL tibia/fibula RT 2V Routine Hospital Course (1) Comminuted fracture of shaft of tibia: On January 27, 2022 Miriam arrived at [facility] and underwent a removal of her Ex-Fix and intramedullary nail fixation of her right tibial shaft. Postoperatively she was started on aspirin for DVT prophylaxis and transferred to the general orthopedic floors. Her hospital course was uneventful. On postop day #1 her vital signs were stable and her pain was well controlled. She was able to participate well with physical therapy and was compliant with her crutch training. She was then discharged home on oral pain medications. She will follow-up with orthopedics on Sunday. Encounter type: initial encounter Fracture alignment: displaced Fracture type: closed Laterality: right Qualified Code(s): S82.251A - Displaced comminuted fracture of shaft of right tibia, initial encounter for closed fracture PG Care Time/CCT Total # of Minutes Spent Total Time Spent with Patient: Total time spent is greater than 50% in coordination of care (as documented) at patient's floor/unit and/or counseling patient: Discharge Plan Discharge Items Patient Disposition: Home - Home Health Services Reason For Visit: Displaced Right Tibia Fracture Discharge Diagnosis: Status post IM nail right tibia Activity: As commented below Non-emergency contact: Surgeon Call non-emergency contact if: your wound has increased redness and your wound has increased drainage Follow-up/Referrals: Elizabeth Childs DO [Primary Care Provider] - Diet: Regular Addtl Attending Provider Instructions: ORTHOPEDIC INSTRUCTIONS Activity Recommendations: Touch toe weightbearing in the splint for balance and transfers. Generally, try to stay off of it while you are in the splint. We will get shoe in a boot as soon as possible in the office and likely you can be weightbearing as tolerated then. Keep your right leg elevated is much as possible. Medications: Percocet and Toradol as needed for pain Aspirin 81 mg twice a day for 6 weeks for DVT prophylaxis Dressing Care: Leave the right splint in place until follow-up appointment on Sunday Showering: Do not get the right splint wet. Follow-Up Visit: Follow-up with Dr. Tadeo's PA (Benton Patino) on Sunday at 1:00. No need to call the office, the appointment has already been set up for you. He will change the splint and check the incisions. If you have any questions call Pending Studies at Discharge: No Stand-Alone Forms: My [facility] My Pick Box, Smoking Cessation Medications and DC Order Prescriptions: New ketorolac 10 mg tablet 10 mg PO Q8H 5 Days Qty: 15 RF: 0 cyclobenzaprine 10 mg tablet 10 mg PO BID PRN (Reason: muscle spasm) Qty: 10 RF: 0 aspirin 81 mg Tablet,Delayed Release (Dr/Ec) 81 mg PO BID 42 Days Qty: 0 RF: 0 Continued Probiotic 10 billion cell Capsule 10,000 mmu cells PO HS RF: 0 oxycodone 5 mg Tablet 5 mg PO Q4H PRN (Reason: Pain) Qty: 40 RF: 0 Discharge Orders: Discharge Order (Routine); Ordered 01/28/22 Ordered By: Benton Tadeo Admission Data Admit Date/Time: 01/27/22 17:12 Attending Provider: Benton Tadeo Admit Provider: Benton Tadeo Primary Care Provider: Elizabeth Childs
== END 2022-01-28 08:50 | disposition home or self-care (01) ==
LOC: 3E 11:31 → ASU 11:31